=== PATIENT | male | born 1990 | race African-American/Black ===

== ENCOUNTER 2019-06-01 12:22 | Emergency (ER) | payer OTHER ==
[~2019-06-01] VITALS: Ht 182.9 cm; Wt 106.6 kg
[2019-06-01 12:48] LABS: URINE BILIRUBIN NEGATIVE (Negative); URINE BLOOD 3+ (Negative); URINE CLARITY CLEAR; URINE COLOR YELLOW; URINE GLUCOSE-RANDOM NEGATIVE (Negative); URINE KETONES NEGATIVE (Negative); URINE LEUKOCYTES-REFLEX NEGATIVE (Negative); URINE NITRITE-REFLEX NEGATIVE (Negative); URINE PROTEIN NEGATIVE (Negative); URINE UROBILINOGEN 0.2 E.U./dl (0.2-1.0)
[2019-06-01 12:57] LABS: SQUAMOUS 4-10 Moderate /LPF (0-3); URINE WBC-REFLEX None Seen /HPF (0-5)
[2019-06-01 12:58] LABS: BACTERIA-REFLEX >30 Many /HPF (None Seen); CASTS None Seen /LPF (None Seen); CRYSTALS None Seen /LPF (None Seen); MUCUS 4-6 Moderate strn/LPF (None Seen)
[2019-06-01 13:08] LABS: ABSOLUTE BASOPHILS 0.1 thou/uL (0.0-0.2); ABSOLUTE EOSINOPHILS 0.3 thou/uL (0.0-0.7); ABSOLUTE MONOCYTES 0.6 thou/uL (0.0-1.2); ABSOLUTE NEUTROPHILS 2.8 thou/uL (1.6-8.1); BASOPHILS 1.3 %; EOSINOPHILS 5.8 %; HEMATOCRIT 43.9 % (42.0-52.0); HEMOGLOBIN 14.7 gm/dL (14.0-18.0); LYMPHOCYTES 34.9 %; MCH 30.4 pg (26.0-34.0); MCHC 33.4 g/dL (28.0-37.0); MCV 91.1 fL (80.0-100.0); MONOCYTES 9.9 %; MPV 7.6 fl. (7.2-11.1); NUCLEATED RBCS 0 /100WBC; PLATELET COUNT* 290 thou/uL (150-400); POLYS 48.1 %; RBC 4.82 mil/uL (4.50-6.00); RDW-CV 12.4 % (10.5-14.5); WBC 5.9 thou/uL (4.0-11.0)
[2019-06-01 13:25] LABS: CALCIUM 8.9 mg/dL (8.5-10.1); CREATININE 1.2 mg/dL (0.6-1.3); POTASSIUM 4.5 mmol/L (3.5-5.1)
[2019-06-01 13:29] LABS: TOTAL BILIRUBIN 0.7 mg/dL (<0.1-1.0)
[2019-06-01] MEDS ORDERED: CIPRO500 MG PO (14:12)
[2019-06-01] MEDS ORDERED: NORCO 5-325 TA1 EAC1 PO (14:30)
[2019-06-01] MEDS ORDERED: IBUPROFEN 800800 M1 PO (14:30)
[2019-06-01 14:48] VITALS: BP 134/81
== END 2019-06-01 14:50 | disposition home or self-care (01) ==
LOC: M.ERS 12:22
PROVIDERS: Nurse Practitioner Family
DX: S32.049A Unspecified fracture of fourth lumbar vertebra, initial encounter for closed fracture (principal); N39.0 Urinary tract infection, site not specified; X58.XXXA Exposure to other specified factors, initial encounter; Y92.89 Other specified places as the place of occurrence of the external cause; Y93.89 Activity, other specified; Y99.8 Other external cause status

== ENCOUNTER 2020-03-26 | Emergency (ER) | payer OTHER ==
[~2020-03-26] VITALS: Ht 182.9 cm; Wt 107.5 kg
[~2020-03-26] MED LIST: CIPRO500 MG PO; IBUPROFEN 800800 M1 PO; NORCO 5-325 TA1 EAC1 PO
[2020-03-26 00:51] LABS: URINE BILIRUBIN NEGATIVE (Negative); URINE BLOOD NEGATIVE (Negative); URINE CLARITY CLEAR; URINE COLOR YELLOW; URINE GLUCOSE-RANDOM NEGATIVE (Negative); URINE KETONES NEGATIVE (Negative); URINE LEUKOCYTES-REFLEX NEGATIVE (Negative); URINE NITRITE-REFLEX NEGATIVE (Negative); URINE PROTEIN NEGATIVE (Negative); URINE SPECIFIC GRAVITY >= 1.030 (1.005-1.030); URINE UROBILINOGEN 0.2 E.U./dl (0.2-1.0)
[2020-03-26 00:53] LABS: AMP/METHAMP Negative (Negative); BARBITURATES Negative (Negative); BENZODIAZEPINES Negative (Negative); COCAINE Negative (Negative); METHADONE Negative (Negative); OPIATES Negative (Negative); PCP Negative (Negative); THC POSITIVE (Negative)
[2020-03-26] MEDS ORDERED: HYDROCODON-ACE1 EAC7 PO (01:59)
[2020-03-26] MEDS ORDERED: CYCLOBENZAPRINE5 MG PO (01:59)
[2020-03-26] MEDS ORDERED: TORADOL 10 MG T10 MG PO (02:33)
[2020-03-26 02:37] VITALS: BP 142/72
== END 2020-03-26 02:37 | disposition home or self-care (01) ==
LOC: M.ERS
PROVIDERS: Personal Emergency Response Attendant
DX: M54.5 Low back pain (principal); R51.9 Headache, unspecified; Z20.2 Contact with and (suspected) exposure to infections with a predominantly sexual mode of transmission; E11.9 Type 2 diabetes mellitus without complications; Z79.899 Other long term (current) drug therapy